=== PATIENT | male | born 1975 | race Caucasian/White ===

== ENCOUNTER 2017-08-21 20:20 | Emergency (ER) | payer OTHER ==
[2017-08-21 20:34] LABS: BASOPHIL (%) 0.7 % (0-1); BASOPHIL COUNT 0.1 K/uL (0-0.1); EOSINOPHIL (%) 1.2 % (0-5); EOSINOPHIL COUNT 0.1 K/uL (0-0.3); HEMATOCRIT 44.7 % (38.0-50.0); HEMOGLOBIN 15.9 G/DL (12.5-16.6); IMMATURE GRANULOCYTE (%) 0.4 % (0.0-0.7); LYMPHOCYTE (%) 10.6 % (15-42); LYMPHOCYTE COUNT 1.2 K/uL (1.0-2.8); MCH 31.2 PG (29.0-34.0); MCHC 35.6 G/DL (30.0-36.0); MCV 87.8 FL (86-99); MONOCYTE (%) 8.5 % (3-12); NEUTROPHIL (%) 78.6 % (45-76); NEUTROPHIL COUNT 8.9 K/uL (1.8-6.4); PLATELET COUNT 209 K/uL (156-360); RBC DIS.WIDTH-CV 12.5 % (11.8-14.6); RBC DIS.WIDTH-SD 40.4 % (39-53); RED BLOOD COUNT 5.09 M/uL (4.00-5.50); WHITE BLOOD COUNT 11.3 K/uL (4.1-10.2)
[2017-08-21 20:49] LABS: AMYLASE 75 IU/L (1-118); CHLORIDE 105 mEq/L (99-109); POTASSIUM 4.1 mEq/L (3.7-5.4); SODIUM 141 mEq/L (136-147)
[2017-08-21 20:51] LABS: GLUCOSE 116 mg/dL (70-99)
[2017-08-21 20:54] LABS: SERUM ETHYL ALCOHOL < 10 mg/dL
[2017-08-21 20:55] LABS: CREATININE 1.1 mg/dL (0.6-1.3)
[2017-08-21 20:56] LABS: UREA NITROGEN (BUN) 11 mg/dL (9-23)
[2017-08-21 20:58] LABS: LIPASE 24 U/L (1.0-51.0)
[2017-08-21 21:21] LABS: GFR ESTIMATE (CALCULATED) > 59 mL/min/ (58.99-99999)
[2017-08-21] MEDS ORDERED: KEFLEX500 MG PO (22:05)
== END 2017-08-21 22:57 ==
LOC: TRA 20:20
PROVIDERS: Emergency Medicine
DX: S31.114A Laceration without foreign body of abdominal wall, left lower quadrant without penetration into peritoneal cavity, initial encounter (principal); S21.112A Laceration without foreign body of left front wall of thorax without penetration into thoracic cavity, initial encounter; S31.010A Laceration without foreign body of lower back and pelvis without penetration into retroperitoneum, initial encounter; S51.811A Laceration without foreign body of right forearm, initial encounter; S51.812A Laceration without foreign body of left forearm, initial encounter; X99.9XXA Assault by unspecified sharp object, initial encounter; Y92.149 Unspecified place in prison as the place of occurrence of the external cause; Y07.9 Unspecified perpetrator of maltreatment and neglect; B19.20 Unspecified viral hepatitis C without hepatic coma; Z23 Encounter for immunization
CPT/HCPCS: 71045; 71260; 73090; 74177; 80047; 80048; 81003; 82150; 83690; 85025; 86850; 86900; 86901; 93005; 99281; 99285; G0480; J0690; J3010